=== PATIENT | female | born 1940 | race Caucasian/White ===

== ENCOUNTER 2019-06-30 09:43 | Outpatient (CLI) | payer OTHER | END 2019-06-30 15:28 | disposition home or self-care (01) | LOC: LAB 09:43 | DX: J45.998 Other asthma (principal); E55.9 Vitamin D deficiency, unspecified; E66.3 Overweight; I11.9 Hypertensive heart disease without heart failure; E04.1 Nontoxic single thyroid nodule; Z12.11 Encounter for screening for malignant neoplasm of colon ==

== ENCOUNTER 2019-07-01 13:46 | Outpatient (CLI) | payer OTHER | END 2019-07-01 13:56 | disposition home or self-care (01) | LOC: LAB 13:46 | DX: J45.998 Other asthma (principal); E66.3 Overweight; I11.9 Hypertensive heart disease without heart failure; E04.1 Nontoxic single thyroid nodule; E55.9 Vitamin D deficiency, unspecified; Z12.11 Encounter for screening for malignant neoplasm of colon ==

== ENCOUNTER 2019-09-03 09:30 | Outpatient (CLI) | payer OTHER | END 2019-09-03 09:36 | disposition home or self-care (01) | LOC: LAB 09:30 | DX: N39.0 Urinary tract infection, site not specified (principal); E78.00 Pure hypercholesterolemia, unspecified; E55.9 Vitamin D deficiency, unspecified; E66.3 Overweight; J45.909 Unspecified asthma, uncomplicated; I11.9 Hypertensive heart disease without heart failure; E04.1 Nontoxic single thyroid nodule ==

== ENCOUNTER 2019-09-08 16:32 | Emergency (ER) | payer OTHER ==
[~2019-09-08] VITALS: Ht 157.5 cm; Wt 68.0 kg
[2019-09-08] MEDS ORDERED: COZAAR25 MG (17:52)
== END 2019-09-09 12:17 | disposition home or self-care (01) ==
LOC: ER 16:32
DX: I87.2 Venous insufficiency (chronic) (peripheral) (principal); M79.661 Pain in right lower leg

== ENCOUNTER 2020-08-09 09:49 | Outpatient (CLI) | payer OTHER ==
[~2020-08-09 09:49] MED LIST: COZAAR25 MG
== END 2020-08-09 09:55 | disposition home or self-care (01) ==
LOC: MAMO-SONO 09:49
PROVIDERS: ATTEND Obstetrics & Gynecology
DX: R92.0 Mammographic microcalcification found on diagnostic imaging of breast (principal); Z12.31 Encounter for screening mammogram for malignant neoplasm of breast; E04.1 Nontoxic single thyroid nodule

== ENCOUNTER → 2020-08-09 11:42 | Outpatient (CLI) | payer OTHER | END | disposition home or self-care (01) | LOC: LAB 11:42 | PROVIDERS: ATTEND Specialist | DX: E03.8 Other specified hypothyroidism (principal); N39.0 Urinary tract infection, site not specified; E78.00 Pure hypercholesterolemia, unspecified; E55.9 Vitamin D deficiency, unspecified; I11.9 Hypertensive heart disease without heart failure; E66.3 Overweight; E04.1 Nontoxic single thyroid nodule; Z12.11 Encounter for screening for malignant neoplasm of colon ==

== ENCOUNTER 2020-08-11 17:02 | Outpatient (CLI) | payer OTHER | END 2020-08-11 17:08 | disposition home or self-care (01) | LOC: LAB 17:02 | DX: E03.8 Other specified hypothyroidism (principal); N39.0 Urinary tract infection, site not specified; E78.00 Pure hypercholesterolemia, unspecified; E55.9 Vitamin D deficiency, unspecified; E66.3 Overweight; I11.9 Hypertensive heart disease without heart failure; E04.1 Nontoxic single thyroid nodule; Z12.11 Encounter for screening for malignant neoplasm of colon ==

== ENCOUNTER 2020-12-11 13:32 | Outpatient (CLI) | payer OTHER | END 2020-12-11 13:43 | disposition home or self-care (01) | LOC: MAMO-SONO 13:32 → SONOGRAMA 13:32 | DX: N81.2 Incomplete uterovaginal prolapse (principal) ==

== ENCOUNTER 2021-01-16 14:12 | Outpatient (CLI) | payer OTHER | END 2021-01-16 14:24 | disposition home or self-care (01) | LOC: SONOGRAMA 14:12 → MAMO-SONO 14:45 | PROVIDERS: ATTEND Student in an Organized Health Care Education/Training Program | DX: N81.2 Incomplete uterovaginal prolapse (principal) ==

== ENCOUNTER 2022-08-16 09:34 | Outpatient (CLI) | payer OTHER | END 2022-08-16 09:35 | disposition home or self-care (01) | LOC: LAB 09:34 | PROVIDERS: ATTEND Student in an Organized Health Care Education/Training Program | DX: N39.0 Urinary tract infection, site not specified (principal) ==

== ENCOUNTER 2022-08-16 12:53 | Outpatient (CLI) | payer OTHER | END 2022-08-16 12:59 | disposition home or self-care (01) | LOC: SONOGRAMA 12:53 | PROVIDERS: ATTEND Specialist | DX: E04.1 Nontoxic single thyroid nodule (principal) ==

== ENCOUNTER 2022-09-19 09:03 | Outpatient (CLI) | payer OTHER | END 2022-09-19 09:04 | disposition home or self-care (01) | LOC: LAB 09:03 | PROVIDERS: ATTEND Specialist | DX: N39.0 Urinary tract infection, site not specified (principal); E78.00 Pure hypercholesterolemia, unspecified; E55.9 Vitamin D deficiency, unspecified; E66.3 Overweight; J45.909 Unspecified asthma, uncomplicated; I11.9 Hypertensive heart disease without heart failure; E04.1 Nontoxic single thyroid nodule; Z12.11 Encounter for screening for malignant neoplasm of colon ==

== ENCOUNTER 2022-10-10 09:06 | Outpatient (CLI) | payer OTHER | END 2022-10-10 09:08 | disposition home or self-care (01) | LOC: SONOGRAMA 09:06 | PROVIDERS: ATTEND Pathology Anatomic Pathology & Clinical Pathology | DX: E04.1 Nontoxic single thyroid nodule (principal) ==

== ENCOUNTER 2022-10-23 12:29 | Outpatient (CLI) | payer OTHER | END 2022-10-23 12:30 | disposition home or self-care (01) | LOC: NUCLEAR 12:29 | PROVIDERS: ATTEND Specialist | DX: M81.0 Age-related osteoporosis without current pathological fracture (principal) ==

== ENCOUNTER → 2022-11-26 11:09 | Outpatient (CLI) | payer OTHER | END | disposition home or self-care (01) | LOC: NUCLEAR 11:00 | PROVIDERS: ATTEND Specialist | DX: I73.9 Peripheral vascular disease, unspecified (principal); I87.2 Venous insufficiency (chronic) (peripheral); E04.1 Nontoxic single thyroid nodule ==

== ENCOUNTER 2023-02-19 14:57 | Outpatient (CLI) | payer OTHER | END 2023-02-19 15:03 | disposition home or self-care (01) | LOC: TOM 14:57 | PROVIDERS: ATTEND Specialist | DX: R51.9 Headache, unspecified (principal) ==